=== PATIENT | male | born 2000 | race Caucasian/White ===

== ENCOUNTER 2020-08-13 17:49 | Emergency (ER) | payer MEDICAID, SELFPAY ==
[2020-08-13 17:50] VITALS: BP 138/65; PULSE 120; RESP 20; TEMP 37.3; O2SAT 98; BMI 36.5
--- NOTE | 2020-08-13 18:43 | HMH.EDGENADL ---
ED Disposition Clinical Impression: Right ankle sprain Qualifiers: Encounter type: initial encounter Involved ligament of ankle: unspecified ligament Qualified Code(s): S93.401A - Sprain of unspecified ligament of right ankle, initial encounter Right foot sprain Qualifiers: Encounter type: initial encounter Qualified Code(s): S93.601A - Unspecified sprain of right foot, initial encounter Disposition: Home, Self-Care Condition on Discharge: Good Additional Instructions: Aircast and crutches until seen by your orthopedic doctor. Call your orthopedic doctor tomorrow to arrange follow-up appointment for this week. Ice and elevation to reduce swelling, ibuprofen for pain. Referrals: Katy Vee [Primary Care Provider] - - Critical Care Critical Care Time: No Attestation: On 08/13/20, the high probability of a clinically significant, sudden or life threatening deterioration of the following system(s) required my full and direct attention, intervention and personal management. The time I documented below is in addition to time spent performing reported procedures but includes the following listed in this critical care notation. Medical Decision Making - Pedro Pablo Inquiry Pt receiving controlled substance: No Vital Signs: 08/13/20 17:50 Temperature 99.2 F Temperature Source Oral Pulse Rate [Right] 120 H Respiratory Rate 20 Blood Pressure [Right Arm] 138/65 Blood Pressure Mean [Right Arm] 89 Blood Pressure Position [Right Arm] Supine 02 Sat by Pulse Oximetry 98 Oxygen Delivery Method Room Air Orders (Tests/Meds): ED MEDICATIONS Discontinued Medications Generic Name Dose Route Start Last Admin Trade Name Freq PRN Reason Stop Dose Admin Ibuprofen 800 mg 08/13/20 18:49 Ibuprofen 400 Mg Tablet PO 08/13/20 18:50 ONCE ONE ORDERS Category Date Time Status Foot XR right minimum 3 views [XR foot RT min 3V] Stat Exams 08/13/20 18:48 Taken XR ankle RT min 3V Stat Exams 08/13/20 18:48 Taken - Radiology Data #1 Image(s): Ankle, Foot/Toes Image Reviewed: Yes I reviewed the patient's radiology image X-ray interpreted by Dutch Washington M.D.: Ankle x-ray : Plate and screws present. Broken screw noted, chronic per patient. Negative for fracture, dislocation, or foreign body. Foot x-ray : Negative for fracture, dislocation, or foreign body. General Adult HPI - General Chief complaint: Extremity Injury, Lower Stated complaint: AO 1700 slipped in mud injured R foot Time Seen by Provider: 08/13/20 18:43 Mode of Arrival: Wheelchair Limitations: Physical Limitations Description of Symptoms (Recalled from ER Triage Doc. by RN): patient in wheelchair to ED after falling at [place] today and landing on his right ankle. patient heard a loud pop and has pain on anterior foot with ankle pain. patient still has sensation in lower extremity. patient has hx of foot fracture with surgery 2 years ago. - History of Present Illness HPI narrative: A couple of hours ago he was going down a hill to [place] with flip-flops on, right foot rolled under, causing him to fall. Complains of pain in his ankle and foot. He was able to bear weight afterwards, says that he had to get out of there. Complains of mild pain currently. Prior surgery of a right ankle fracture a couple of years ago in [place]. He has a plate and screws. One of the screws in his ankle is broken previously. [facility] History - Hepatitis A Screen Drug use history?: No High risk sexual behaviors?: No History of sexually transmitted infection?: No Currently employed?: No Childcare worker?: No Do you have indoor plumbing?: Yes Do you have electricity?: Yes Attestation statement:: This patient has been screened for Hepatitis A risk factors. I have reviewed the patient's past medical history: Yes ROS Obtained: Yes Systems reviewed as appropriate & no additional complaints - Musculoskeletal Musculoskeletal: Reports
--- NOTE | 2020-08-13 18:48 | XR_ITS ---
PROCEDURE INFORMATION: Exam: XR Right Foot Exam date and time: 08/13/2020 6:48 PM Age: 19 years old Clinical indication: Pain and injury or trauma; Fall; Blunt trauma; Foot; Prior surgery; Surgery date: 6+ months; Patient HX: [place], right ankle pain, PT covered in mud tried to remove as much as possible TECHNIQUE: Imaging protocol: XR Right foot. Views: 3 or more views. COMPARISON: CR XR ANKLE RT MIN 3V 08/13/2020 7:06 PM FINDINGS: Bones/joints: Lateral plate screw fixation distal fibula described on ankle x-ray done the same day. No acute fracture or dislocation involving the foot. Calcaneal spurring. Soft tissues: Extensive subcutaneous tissue opacities. IMPRESSION: No acute findings.
--- NOTE | 2020-08-13 18:48 | XR_ITS ---
PROCEDURE INFORMATION: Exam: XR Right Ankle Exam date and time: 08/13/2020 6:48 PM Age: 19 years old Clinical indication: Pain and injury or trauma; Fall; Blunt trauma; Prior surgery; Surgery date: 6+ months; Surgery type: RT ankle; Patient HX: [place], right ankle pain, PT covered in mud tried to remove as much as possible TECHNIQUE: Imaging protocol: XR Right ankle. Views: 3 or more views. COMPARISON: No relevant prior studies available. FINDINGS: Bones/joints: Lateral plate and screw fixation of the distal fibula. There is a fractured screw overlying the distal tibia. No acute fracture or dislocation. No hardware complication. Calcaneal spurring. Soft tissues: Extensive subcutaneous tissue opacities. IMPRESSION: No acute bony findings. Fractured screw involving the lateral plate and screw fixation of the distal fibula.
[2020-08-13 20:00] VITALS: BP 147/82; PULSE 113; RESP 16; TEMP 36.6; O2SAT 97
== END 2020-08-13 20:00 | disposition home or self-care (01) ==
PROVIDERS: Emergency Provider Emergency Medicine; PCP Family Medicine Addiction Medicine
DX: S93.401A Sprain of unspecified ligament of right ankle, initial encounter (principal); S93.601A Unspecified sprain of right foot, initial encounter; W01.0XXA Fall on same level from slipping, tripping and stumbling without subsequent striking against object, initial encounter; Y92.89 Other specified places as the place of occurrence of the external cause
CPT/HCPCS: 29515; 73610; 73630; 99283

== ENCOUNTER 2024-10-20 13:15 | Emergency (ER) | payer SELFPAY ==
[2024-10-20 13:21] VITALS: BP 135/85; PULSE 71; RESP 18; TEMP 36.8; O2SAT 97; BMI 44.8
[2024-10-20 13:26] LABS: Coronavirus 19, PCR Not Detected (NotDetected); Influenza A, PCR Not Detected (NotDetected); Influenza B, PCR Not Detected (NotDetected)
--- OUTSIDE RECORDS SUMMARY | 2024-10-20 13:30 | XMS_ITS | Clinical Summary ---
Author Organization Healthcare Address [address] [place] [address] Care Team Providers Care Audiovisual Technician Name Role Phone Unavailable Primary Care Provider Unavailabl e Allergies No known active allergies Medications No known medications Active Problems No known active problems Family History Medical History Relation Name Comments Hereditary spherocytosis Brother Diabetes type II Maternal Grandfather Diabetes type II Paternal Grandfather Gout Paternal Grandfather Relation Name Status Comments Brother Maternal Grandfather Paternal Grandfather Social History Tobacco Use Types Packs/Day Years Used Date Smoking Tobacco: Never Smokeless Tobacco: Never Sex and Gender Information Value Date Recorded Sex Assigned at Not on file Legal Sex Male 3:05 PM EDT Gender Identity Not on file Sexual Orientation Not on file Last Filed Vital Signs Vital Sign Reading Time Taken Comments Blood Pressure 140/88 10/31/2020 9:29 AM EDT Pulse 89 10/31/2020 9:29 AM EDT Temperature 36.7 C (98.1 F) 10/31/2020 9:29 AM EDT Respiratory Rate - - Oxygen Saturation - - Inhaled Oxygen Concentration - - Weight 151 kg (332 lb 7.3 oz) 10/31/2020 9:29 AM EDT Height 172.7 cm (5' 8 ) 10/31/2020 9:29 AM EDT Body Mass Index 50.55 10/31/2020 9:29 AM EDT Plan of Treatment Health Maintenance Due Date Last Done Comments [facility]-Depression Screening 2000 [facility]-Infant/Child/Adol SDOH Screenings 2000 [facility]-Varicella Vaccines (1 of 2 - 13+ 2-dose series) 2013 HPV Vaccines (1 - Male 3-dos e series) 10/30/2015 [facility]- SDOH Screenings 2018 [facility]-Adult SDOH Screenings 2018 [facility]-DTaP,Tdap,and Td Vaccine s (1 - Tdap) 10/30/2019 [facility]-Hepatitis B Vaccines (1 of 3 - 19+ 3-dose series) 10/30/2019 OUS-FDYSP-11 Vaccine (1 - 20 24-25 season) 2023 [facility]-Influenza Vaccine (#1) 2024 [facility]-Zoster Vaccines (1 of 2) 2050 [facility]-HIB Vaccines Aged Out No longer e ligible based on patient's age to complete this topic [facility]-Hepatitis A Vaccines Aged Out No longer eligible based on patient's age to complete this topic [facility]-IPV Vaccines Aged Out No longer e ligible based on patient's age to complete this topic [facility]-Pneumococcal Vaccine: Pediatrics (0 to 5 Years) and At-Risk Patients (6 to 49 Years) Aged Out No long er eligible based on patient's age to complete this topic [facility]-Rotavirus Vaccines Aged Out No lo nger eligible based on patient's age to complete this topic Insurance [employer] [facility] MEDICA[employer]
--- OUTSIDE RECORDS SUMMARY | 2024-10-20 13:30 | XMS_ITS | Encounter Summary ---
Author Organization Healthcare Address [address] [place] [address] Care Team Providers Care Broadband Technician Name Role Phone Jeannette Lo APRN Primary Care Provider [phone] Reason for Visit * Reason Comments Med Refill Encounter Details Date Type Department Care Team (Late st Contact Info) Description 04/25/2021 Refill [facility] [place] [address] Jeannette Lo APRN [address] [place] [address] Vitamin D deficiency Social History Tobacco Use Types Packs/Day Years Used Date Smoking Tobacco: Never Smokeless Tobacco: Never Sex and Gender Information Value Date Recorded Sex Assigned at Not on file Legal Sex Male 3:05 PM EDT Gender Identity Not on file Sexual Orientation Not on file documented as of this encounter Miscellaneous Notes * Telephone Encounter - Lupe James - 04/25/2021 4:31 PM EDT Pt is aware * Telephone Encounter - Sandi Marie APRN - 04/25/2021 2:54 PM EDT Recheck vitamin D level first. * Telephone Encounter - Argelia Bhandari - 04/25/2021 11:43 AM EDT Refill request does not meet protocol. Sending to clinic for review. Additional info: Medication not on protocol. documented in this encounter Plan of Treatment Not on file documented as of this encounter Visit Diagnoses Diagnosis Vitamin D deficiency documented in this encounter Care Teams Broadband Technician Relationship Specialty Start Date End Date Jeannette Lo APRN [address] [place] [phone] PCP - General Family Medicine 10/31/20 12/02/23 documented as of this encounter
--- NOTE | 2024-10-20 13:34 | ECG_ITS ---
APPROVED REPORT Exam: Resting ECG HR:83 bpm ECG Measurements Heart Rate 83 AXES WV 161 P 50 QRSd 90 QRS 14 QT 344 T 7 QTc 384 Conclusion SINUS RHYTHM NORMAL ECG UNCONFIRMED REPORT Normal sinus rhythm. No ST elevation or depression Electronically signed by : LAZ RAMIRES, 10/20/2024 15:41:53
--- NOTE | 2024-10-20 13:36 | ED_ITS ---
<Statement entered by Jose Chatterjee MD - 10/20/24 18:57> I was consulted by the MELISSA, and we discussed the complexity of the problems being addressed. I approve the treatment and management plan for this patient's care in the emergency department, thus performing a substantive portion of the medical decision making. There is low concern for central etiology of patient's vertigo given patient's normal exam. Patient also noted to have an ear effusion on MELISSA Fryman's evaluation, which could contribute to some feelings of dizziness as well. Jose Chatterjee MD Discharge Plan Disposition Patient Disposition: Home, Self-Care Condition: Good Prescriptions Prescriptions: New meclizine 25 mg tablet 25 mg PO BID PRN (Reason: dizziness) 3 Days Qty: 6 0RF fluticasone propionate 50 mcg/actuation spray,suspension 1 spray intranasal DAILY Qty: 16 0RF Referrals Follow up/Referrals: Katy Vee MD [Primary Care Provider, Family Practice] - See instructions Activity Restrictions/Add. Instructions Additional Instructions/Restrictions: Symptoms worsen or do not improve return Follow-up with PCP Meclizine as needed Clinical Impressions Clinical Impression: Vertigo Stand Alone Forms Stand Alone Forms: Work/School Release Instructions Patient Instructions: Vertigo (Alternative Therapy), DI for Vertigo Print Language Print Language: Malaysian Discharge ED Provider: Jose Chatterjee General Adult HPI General Chief complaint: Dizziness Stated complaint: dizzyness Time Seen by Provider: 10/20/24 13:34 Mode of Arrival: Ambulatory Source of Information: Patient Description of Symptoms (Recalled from ER Triage Doc. by RN): nabila presents to the emergency department for dizziness that started yesterday. Patient stated that this happens intermittently, and nausea occurs when he gets dizzy. History of Present Illness HPI narrative: 23-year-old male presents for dizziness that started yesterday morning. Patient states that happens only when he moves causes him to be nauseous when he is dizzy. Patient states as long as he sits still he does not feel dizzy. Patient states he does not want a head CT Related Data Previous Rx's ?Medication ?Instructions ?Recorded fluticasone propionate 50 1 spray intranasal DAILY #16 grams 10/20/24 mcg/actuation nasal spray,suspension meclizine 25 mg tablet 25 mg PO BID PRN dizziness 3 days 10/20/24 #6 tabs Allergies Allergy/AdvReac Type Severity Reaction Status Date / Time No Known Allergies Allergy Verified 08/13/20 20:15 [facility] Disclaimer: The information contained in this section may have been updated after the patient was seen, as this information can be updated by other users. Social History (Reviewed 10/20/24 @ 15:28 by Efren Lawrence ([facility]), SENIOR ASIC DESIGN ENGINEER) Smoking Status: Never smoker alcohol intake: never current occupational status: employed Travel in the last 8 weeks?: None Other Medical History Have you received the Flu Vaccine for this season: No Have you received the Pneumonia Vaccine: No ROS Obtained: Yes All systems reviewed & no additional complaints except as documented Constitutional Constitutional: Reports system reviewed and no additional complaints, except as documented and Reports as per HPI ENT Ears, Nose, Mouth, and Throat: Reports dizziness Neurologic Neurologic: Reports system reviewed and no additional complaints, except as documented, Reports as per HPI and Reports dizziness Physical Exam General General appearance: alert and in no apparent distress Head Head exam: atraumatic Eye Eye exam: Present normal appearance and PERRL ENT ENT exam: Present TM's normal bilaterally Expanded ENT Exam TM/Canal exam: Bilateral TM: effusion Throat exam: Present normal inspection Neck Neck exam: Present normal inspection and full ROM Respiratory Respiratory exam: Present normal lung sounds bilaterally Cardiovascular Cardiovascular exam: Present regular rate and normal rhythm Neurological Exam Neurological exam: Present alert, oriented X3, CN II-XII intact and normal gait Skin Skin exam: Present warm and intact Medical Decision Making Medical Records Medical records reviewed: Yes I reviewed the patient's medical records. Screening: Per USPSTF and CDC recommendations, given the prevalence of disease in our region, it is our hospital?s policy to screen for HIV and viral Hepatitis for all patients aged 18 and over and those with ongoing risk factors. Pedro Pablo Inquiry Pt receiving controlled substance: No Pedro Pablo was queried for this patient: No Vital Signs: 10/20/24 13:21 Temperature 98.2 F Temperature Source Oral Pulse Rate [Right Radial] 71 Respiratory Rate 18 Blood Pressure [Right Arm] 135/85 Blood Pressure Mean [Right Arm] 101 Blood Pressure Source [Right Arm] Automatic Cuff Blood Pressure Position [Right Arm] Sitting 02 Sat by Pulse Oximetry 97 Oxygen Delivery Method Room Air Lab Data Lab results reviewed: Yes I reviewed the patient's lab results. Lab Results 10/20/24 13:21: SARS-CoV-2 (PCR) Not detected, Influenza A Untype (PCR) Not detected, Influenza Type B (PCR) Not detected 10/20/24 13:47: WBC 9.6, RBC 5.47, Hgb 15.4, Hct 45.3, MCV 82.8, MCH 28.2, MCHC 34.0, RDW 12.9, Plt Count 248, MPV 10.9 H, Neut % (Auto) 72.4, Lymph % (Auto) 19.5, [place] % (Auto) 6.8, Eos % (Auto) 0.5, Baso % (Auto) 0.3, Neut # (Auto) 7.0, Lymph # (Auto) 1.9, [place] # (Auto) 0.7, Eos # (Auto) 0.1, Baso # (Auto) 0.0, Sodium 140, Potassium 4.0, Chloride 106, Carbon Dioxide 26, Anion Gap 12.0, BUN 10, Creatinine 0.70, Estimated Creat Clear 159, Estimated GFR 140, Est GFR ( Amer) 169, Glucose 140 H, Calcium 9.7, Total Bilirubin 0.9, AST 30, ALT 45, Alkaline Phosphatase 74, Troponin I < 0.01, Total Protein 7.6, Albumin 4.4, Globulin 3.2, Albumin/Globulin Ratio 1.4 10/20/24 13:47 10/20/24 13:47 Orders (Tests/Meds): ED MEDICATIONS Discontinued Medications Generic Name Dose Route Start Last Admin Trade Name Freq PRN Reason Stop Dose Admin Meclizine HCl 25 mg 10/20/24 14:54 10/20/24 14:58 Meclizine 25mg Tablet PO 10/20/24 14:55 25 mg ONCE ONE Administration Ondansetron HCl 4 mg 10/20/24 13:54 10/20/24 13:58 Ondansetron 4mg/2ml Vial IV 10/20/24 13:55 4 mg ONCE ONE Administration ORDERS Category Date Time Status CBC w/Auto Diff [Complete Blood Count Auto Diff] Stat Lab 10/20/24 13:47 Completed CMP [Comprehensive Metabolic Panel] Stat Lab 10/20/24 13:47 Completed Rapid PCR Covid and Flu A/B Stat Lab 10/20/24 13:21 Completed Trop I [Troponin I] Stat Lab 10/20/24 13:47 Completed Medical Decision Narrative: In summary patient is a 23-year-old male who presents to the emergency department for evaluation of dizziness. Patient is hemodynamically stable upon arrival, afebrile. Unremarkable physical exam. Differential diagnosis includes vertigo, viral syndrome. Initial workup will be conducted with labs, swabs, patient refused CT. Initial inventions include meclizine 25 mg, Zofran. Initial workup reviewed by nj labs unremarkable, swabs negative. Upon repeat evaluation patient states that meclizine has helped the dizziness and the Zofran has helped the nausea. Given this patient appropriate for discharge at this time will discharge home with a prescription for meclizine if symptoms return or worsen return Critical Care Critical Care Time Critical Care Time: No
[2024-10-20] MEDS: ONDANSETRON 4MG/2ML VIAL 4 MG IV (13:58)
[2024-10-20 14:20] LABS: Hematocrit 45.3 % (42.0-52.0); Hemoglobin 15.4 g/dL (14.1-18.0); Immature Granulocytes % 0.5 %; Mean Corpuscular HGB Conc 34.0 g/dL (31.8-35.4); Mean Corpuscular Hemoglobin 28.2 pg (27.0-31.2); Mean Corpuscular Volume 82.8 fl (80-94); Nucleated Red Blood Cells % 0 %; Platelet Count 248 K/mm3 (142-424); Red Blood Count 5.47 M/mm3 (4.60-6.20); Red Cell Distribution Width-SD 39.0 fL; White Blood Count 9.6 K/mm3 (4.8-10.8)
[2024-10-20 14:25] LABS: Alanine Aminotransferase 45 U/L (12-78); Albumin Level 4.4 g/dl (3.5-5.0); Albumin/Globulin Ratio 1.4 (1.1-1.8); Alkaline Phosphatase 74 U/L (38-126); Anion Gap 12.0 mEq/L (5-15); Aspartate Amino Transferase 30 U/L (17-59); Bilirubin,Total 0.9 mg/dl (0.2-1.3); Blood Urea Nitrogen 10 mg/dl (9-20); Calcium 9.7 mg/dl (8.4-10.2); Carbon Dioxide 26 mmol/L (22.0-30.0); Chloride 106 mmol/L (98-107); Creatinine Clearance Estimated 159 mL/min (50-200); Creatinine,Serum 0.70 mg/dl (0.66-1.25); Estimated Glomerular Filt Rate 140 ml/min (>60); GFR (African American) 169 ML/MIN (>60); Globulin 3.2 g/dL (1.3-3.2); Glucose 140 mg/dl (74-100); Potassium 4.0 mmoL/L (3.5-5.1); Sodium 140 mmol/L (136-145); Total Protein,Serum 7.6 g/dl (6.3-8.2)
[2024-10-20 14:42] LABS: Troponin I < 0.01 ng/ml (0.00-0.034)
[2024-10-20] MEDS: MECLIZINE 25MG TABLET 25 MG PO (14:58)
[2024-10-20 15:49] VITALS: BP 127/87; PULSE 67; RESP 17; TEMP 36.6; O2SAT 98
== END 2024-10-20 15:50 | disposition home or self-care (01) ==
PROVIDERS: Nurse Practitioner Family; Emergency Provider Student in an Organized Health Care Education/Training Program; PCP Family Medicine Addiction Medicine
DX: R42 Dizziness and giddiness (principal); R11.0 Nausea
CPT/HCPCS: 80053; 84484; 85025; 87636; 93005; 96374; 99284; J2405